=== PATIENT | male | born 1995 | race Caucasian/White ===

== ENCOUNTER 2016-10-22 17:49 | Emergency (ER) | payer SELFPAY ==
[~2016-10-22] VITALS: Ht 172.7 cm; Wt 110.0 kg
[2016-10-22] MEDS ORDERED: TETANUS, DIPHTHERIA, PERTUSSIS VAC/PF 0.5ML (>7YR OLD) IM ONE (20:00)
[2016-10-22] MEDS ORDERED: BACITRACIN ZINC OINT UDPKT TOP ONE (20:00)
[2016-10-22] MEDS ORDERED: IBUPROFEN 600MG TABLET PO ONE (20:00)
[2016-10-22 21:18] VITALS: BP 125/77
== END 2016-10-22 21:39 | disposition home or self-care (01) ==
LOC: ER 18:01
DX: S66.911A Strain of unspecified muscle, fascia and tendon at wrist and hand level, right hand, initial encounter (principal); V43.52XA Car driver injured in collision with other type car in traffic accident, initial encounter; Y93.89 Activity, other specified; Y99.8 Other external cause status; Y92.89 Other specified places as the place of occurrence of the external cause
CPT/HCPCS: 73130; 99284; X7700; Z7610